=== PATIENT | female | born 1995 | race Caucasian/White ===

== ENCOUNTER 2016-11-17 10:58 | Inpatient (IN) | payer MEDICAID, OTHER ==
[~2016-11-17] VITALS: Ht 157.5 cm; Wt 60.8 kg
[2016-11-17 11:19] LABS: BASOPHILS % (AUTO) 0.1 % (0.0-2.0); EOSINOPHILS % (AUTO) 0.3 % (1.0-6.0); HEMATOCRIT 44.2 % (36-46); HEMOGLOBIN 14.3 g/dL (12.0-16.0); LYMPHOCYTES # (AUTO) 1.2 K/uL (1.0-4.8); LYMPHOCYTES % (AUTO) 19.4 % (22.0-44.0); MEAN CORPUSCULAR HEMOGLOBIN 27.8 pg (26.0-34.0); MEAN CORPUSCULAR HGB CONC 32.3 G/dL (31.0-37.0); MEAN CORPUSCULAR VOLUME 86 fL (80-100); MONOCYTES # (AUTO) 0.5 K/uL (0.1-1.0); MONOCYTES % (AUTO) 7.3 % (2.0-9.0); NEUTROPHILS # (AUTO) 4.6 K/uL (1.8-7.7); NEUTROPHILS % (AUTO) 72.9 % (40.0-70.0); PLATELET COUNT (AUTO) 267 K/uL (150-450); RED BLOOD CELL COUNT(AUTO) 5.14 MIL/uL (4.00-5.20); RED CELL DISTRIBUTION WIDTH 14.7 % (11.5-14.5); WHITE BLOOD COUNT (AUTO) 6.3 K/uL (4.5-11.0)
[2016-11-17 11:28] LABS: ANION GAP 15 mmol/L (8-16); CALCIUM, TOTAL 8.9 mg/dL (8.8-10.5); CARBON DIOXIDE 23 mmol/L (22-29); CHLORIDE 104 mmol/L (98-107); CREATININE 0.77 mg/dL (0.60-1.30); GLOMERULAR FILTR. RATE CALC > 60 mL/min (>60); POTASSIUM 3.5 mmol/L (3.5-5.1); SODIUM SERUM 142 mmol/L (136-145); UREA NITROGEN, BLOOD 8 mg/dL (7-18)
[2016-11-17 11:34] LABS: ALANINE AMINOTRANSFERASE 24 U/L (12-78); ALBUMIN 4.2 g/dL (3.4-5.0); ASPARTATE AMINOTRANSFERASE 21 U/L (15-37); TOTAL PROTEIN, SERUM 8.5 g/dL (6.4-8.2)
[2016-11-17] MEDS ORDERED: LORazepam 1 MG TABLET PO ONE (12:30)
[2016-11-17] MEDS ORDERED: LORazepam 2 MG TABLET PO PRN (13:30)
[2016-11-17 14:59] VITALS: BP 136/86
[2016-11-17 15:36] LABS: CHOL/HDL RATIO 4.4 (3.9-5.7)
[2016-11-17 16:06] VITALS: BP 126/84
[2016-11-17] MEDS: ZOLPIDEM TARTRATE 10 MG TABLET PO PRN (20:30)
[2016-11-18 06:28] VITALS: BP 126/80
[2016-11-18 10:40] VITALS: BP 103/67
[2016-11-18] MEDS: SERTRALINE HCL 50 MG TABLET PO SCH (13:15)
[2016-11-18 17:46] VITALS: BP 121/79
[2016-11-18] MEDS: ZOLPIDEM TARTRATE 10 MG TABLET PO PRN (20:13)
[2016-11-18] MEDS ORDERED: ACETAMINOPHEN 325 MG TABLET PO PRN (21:00)
[2016-11-18] MEDS ORDERED: IBUPROFEN 400 MG TABLET PO PRN (21:00)
[2016-11-19 07:56] LABS: CHOL/HDL RATIO 4.5 (3.9-5.7); THYROID STIMULATING HORMONE 1.26 uIU/mL (0.36-3.74)
[2016-11-19] MEDS: SERTRALINE HCL 50 MG TABLET PO SCH (08:57)
[2016-11-19 11:13] VITALS: BP 136/86
[2016-11-19] MEDS ORDERED: SERT50TA12 PO (14:44)
[2016-11-19 17:41] LABS: HEMOGLOBIN A1C 5.4 % (4.5-6.2)
== END 2016-11-19 16:15 | disposition home or self-care (01) | DRG 751 ==
LOC: EMS 11:00 → 3EI 14:18
DX: F33.2 Major depressive disorder, recurrent severe without psychotic features (principal); R45.851 Suicidal ideations; L65.9 Nonscarring hair loss, unspecified; E78.5 Hyperlipidemia, unspecified; F10.10 Alcohol abuse, uncomplicated; F12.10 Cannabis abuse, uncomplicated; F17.210 Nicotine dependence, cigarettes, uncomplicated; Z71.51 Drug abuse counseling and surveillance of drug abuser; Z71.41 Alcohol abuse counseling and surveillance of alcoholic; Z91.5 Personal history of self-harm
CPT/HCPCS: 83036; 84443; 99285; G0480